=== PATIENT | female | born 1960 | race Caucasian/White ===

== ENCOUNTER 2019-12-20 14:07 | Outpatient (CLI) | payer OTHER | END 2019-12-20 23:59 | disposition home or self-care (01) | LOC: CARD DIAG 14:07 | PROVIDERS: ATTEND Internal Medicine Cardiovascular Disease | DX: R06.02 Shortness of breath (principal); R53.83 Other fatigue | CPT/HCPCS: 93306 ==

== ENCOUNTER 2020-01-31 07:12 | Outpatient (CLI) | payer OTHER ==
[2020-01-31 08:13] LABS: CLARITY,URINE CLEAR (Clear); COLOR,URINE YELLOW (Yellow); GLUCOSE, URINE NEGATIVE (Neg); KETONES,URINE NEGATIVE (Neg); LEUKOCYTE ESTERASE ,URINE NEGATIVE (Neg); NITRITES, URINE NEGATIVE (Neg); OCCULT BLOOD,URINE NEGATIVE (Neg); PROTEIN,URINE NEGATIVE (Neg); UROBILINOGEN,URINE 0.2 E.U/dL (0.2-1.0)
[2020-01-31 08:16] LABS: UA COLLECTION TYPE CLN CATCH MIDSTREAM
[2020-01-31 08:17] LABS: BASOPHILS % (AUTO) 0.6 % (0-1); EOSINOPHILS # (AUTO) 0.2 X10'3 (0-0.9); EOSINOPHILS % (AUTO) 3.7 % (0-6); HEMOGLOBIN 13.5 g/dl (12.0-16.0); LYMPHOCYTES # (AUTO) 1.8 X10'3 (1.1-4.8); LYMPHOCYTES % (AUTO) 28.1 % (21-51); MEAN CORPUSCULAR HEMOGLOBIN 29.3 PG (27.0-31.0); MEAN CORPUSCULAR HGB CONC 32.9 g/dL (33.0-36.5); MEAN CORPUSCULAR VOLUME 89.1 FL (78-98); MEAN PLATELET VOLUME 10.6 FL (7.4-10.4); MONOCYTES # (AUTO) 0.5 X10'3 (0-0.9); MONOCYTES % (AUTO) 7.6 % (2-12); NEUTROPHILS # (AUTO) 3.9 X10'3 (1.8-7.7); PLATELET COUNT 207 X10'3 (140-440); RED CELL DISTRIBUTION WIDTH 13.6 % (11.5-14.5); WHITE BLOOD COUNT 6.6 X10'3 (4.5-11.0)
[2020-01-31 08:29] LABS: OCCULT BLOOD STOOL NEGATIVE (Neg)
[2020-01-31 08:31] LABS: ALANINE AMINOTRANSFERASE 31 U/L (12-78); ALBUMIN 4.1 G/DL (3.4-5.0); ALKALINE PHOSPHATASE 112 IU/L (46-116); ANION GAP 4 (8-16); ASPARTATE AMINO TRANSFERASE 25 U/L (10-37); BILIRUBIN,TOTAL 0.4 MG/DL (0.1-1.0); BLOOD UREA NITROGEN 19 MG/DL (7-18); BUN/CREATININE RATIO 20.7 (6.6-38.0); CALCIUM 8.9 MG/DL (8.5-10.1); CHLORIDE 107 MMOL/L (99-107); CHOLESTEROL 193 MG/DL (0-200); CREATININE 0.92 MG/DL (0.40-0.90); GLUCOSE 94 MG/DL (70-104); HDL CHOLESTEROL 65 MG/DL (35-60); LDL CHOLESTEROL 116 MG/DL (50-100); POTASSIUM 3.6 MMOL/L (3.5-5.1); SODIUM 142 MMOL/L (135-145); TOTAL CARBON DIOXIDE 30.9 MMOL/L (24-32); TOTAL PROTEIN 8.2 G/DL (6.4-8.2); TRIGLYCERIDES 58 MG/DL (20-135); eGFR 63 ML/MIN
[2020-01-31 09:30] LABS: LARGE PLATELETS FEW; PLATELET ESTIMATE NORMAL
== END 2020-01-31 23:59 | disposition home or self-care (01) ==
LOC: LAB 07:12
DX: Z12.11 Encounter for screening for malignant neoplasm of colon (principal); D64.9 Anemia, unspecified; M81.0 Age-related osteoporosis without current pathological fracture; I25.10 Atherosclerotic heart disease of native coronary artery without angina pectoris; E03.9 Hypothyroidism, unspecified; E55.9 Vitamin D deficiency, unspecified
CPT/HCPCS: 36415; 80053; 80061; 81003; 82272; 82306; 84443; 85025

== ENCOUNTER 2020-02-28 07:15 | Inpatient (IN) | payer OTHER ==
[~2020-02-28] VITALS: Ht 160 cm; Wt 65.9 kg
[2020-02-28 08:20] LABS: BASOPHILS # (AUTO) 0.1 X10'3 (0-0.2); BASOPHILS % (AUTO) 1.4 % (0-1); EOSINOPHILS # (AUTO) 0.2 X10'3 (0-0.9); HEMATOCRIT 39.5 % (35.0-45.0); LYMPHOCYTES # (AUTO) 2.5 X10'3 (1.1-4.8); LYMPHOCYTES % (AUTO) 37.9 % (21-51); MEAN CORPUSCULAR HEMOGLOBIN 29.9 PG (27.0-31.0); MEAN CORPUSCULAR HGB CONC 32.9 g/dL (33.0-36.5); MEAN CORPUSCULAR VOLUME 90.9 FL (78-98); MEAN PLATELET VOLUME 10.2 FL (7.4-10.4); MONOCYTES # (AUTO) 0.6 X10'3 (0-0.9); NEUTROPHILS # (AUTO) 3.2 X10'3 (1.8-7.7); NEUTROPHILS % (AUTO) 48.7 % (42-75); PLATELET COUNT 202 X10'3 (140-440); RED BLOOD COUNT 4.35 X10'6 (4.20-5.60); RED CELL DISTRIBUTION WIDTH 14.3 % (11.5-14.5); WHITE BLOOD COUNT 6.5 X10'3 (4.5-11.0)
--- NOTE | 2020-02-28 08:25 | NUR ---
Discussed pt's c/o CP with NEGRA Erwin; new order for repeat EKG and Ativan 0.25mg IV received as pt's HR too low for Clonidine.
[2020-02-28] MEDS ORDERED: LORazepam 2 mg/ml vial IV ONE (08:40)
[2020-02-28 08:44] LABS: ALBUMIN 3.7 G/DL (3.4-5.0); ALBUMIN/GLOBULIN RATIO 0.9 (1.1-1.5); ALKALINE PHOSPHATASE 100 IU/L (46-116); ANION GAP 7 (8-16); ASPARTATE AMINO TRANSFERASE 21 U/L (10-37); BILIRUBIN,TOTAL 0.2 MG/DL (0.1-1.0); BLOOD UREA NITROGEN 19 MG/DL (7-18); BUN/CREATININE RATIO 17.6 (6.6-38.0); CALCIUM 8.9 MG/DL (8.5-10.1); CHLORIDE 107 MMOL/L (99-107); CREATININE 1.08 MG/DL (0.40-0.90); GLUCOSE 88 MG/DL (70-104); POTASSIUM 3.8 MMOL/L (3.5-5.1); SODIUM 140 MMOL/L (135-145); TOTAL CARBON DIOXIDE 25.7 MMOL/L (24-32); TOTAL PROTEIN 7.6 G/DL (6.4-8.2); eGFR 52 ML/MIN
[2020-02-28 08:55] LABS: ALANINE AMINOTRANSFERASE 21 U/L (12-78)
[2020-02-28] MEDS ORDERED: nitroGLYCERIN 0.4mg SUBLingual tab SL PRN ×2 (09:10→13:35)
[2020-02-28] MEDS ORDERED: TICA90TA PO (11:20)
[2020-02-28] MEDS ORDERED: acetaminophen 325mg tablet PO PRN ×2 (11:55)
[2020-02-28] MEDS ORDERED: HYDROcodone/acetaminophen 5mg/325mg tablet PO PRN (11:55)
[2020-02-28] MEDS ORDERED: magnesium 2GM in 50ml NS 50 ML IV PRN (11:55)
[2020-02-28] MEDS ORDERED: magnesium hydroxide 30ml (MOM) UD suspension PO PRN (11:55)
[2020-02-28] MEDS ORDERED: magnesium 4gm in 100ml NS 100 ML IV PRN (11:55)
[2020-02-28] MEDS ORDERED: potassium Cl 20 mEq SR tablet PO PRN ×2 (11:55)
[2020-02-28] MEDS ORDERED: potassium CL 10mEq/100ml bag 100 ML IV PRN ×2 (11:55)
[2020-02-28] MEDS ORDERED: mag hydrox/Alum hydrox/simeth 30ml oral suspension PO PRN (11:55)
[2020-02-28] MEDS ORDERED: magnesium Cl slow-release 64mg tablet PO PRN (11:55)
[2020-02-28] MEDS ORDERED: bisacodyl 10mg suppository rectal RC PRN (11:55)
[2020-02-28] MEDS ORDERED: acetaminophen 650mg rectal suppository RC PRN (11:55)
[2020-02-28] MEDS ORDERED: morphine 2 MG/ML inj. syringe IV PRN ×2 (11:55)
[2020-02-28] MEDS ORDERED: HYDROcodone/acetaminophen 10/325mg tab PO PRN (11:55)
[2020-02-28] MEDS ORDERED: diphenhydrAMINE 25mg capsule PO PRN (11:55)
[2020-02-28 12:19] LABS: HEMOGLOBIN A1C 5.5 % (4.5-6.2)
[2020-02-28] MEDS ORDERED: OREG1500 PO (12:24)
[2020-02-28] MEDS ORDERED: ASCO-100 PO (12:24)
[2020-02-28] MEDS ORDERED: VITA40TA PO (12:24)
[2020-02-28] MEDS ORDERED: CALC600T22 PO (12:24)
[2020-02-28] MEDS ORDERED: RIBO100T3 PO (12:24)
[2020-02-28] MEDS ORDERED: CHOL100025 PO (12:24)
[2020-02-28] MEDS ORDERED: ASPI-611 PO (12:24)
[2020-02-28 12:27] LABS: CLARITY,URINE CLEAR (Clear); COLOR,URINE YELLOW (Yellow); GLUCOSE, URINE NEGATIVE (Neg); KETONES,URINE NEGATIVE (Neg); LEUKOCYTE ESTERASE ,URINE NEGATIVE (Neg); NITRITES, URINE NEGATIVE (Neg); OCCULT BLOOD,URINE NEGATIVE (Neg); PROTEIN,URINE NEGATIVE (Neg); UROBILINOGEN,URINE 0.2 E.U/dL (0.2-1.0)
[2020-02-28] MEDS: normal saline 1000ml 1,000 ML IV SCH (12:27)
[2020-02-28 12:32] LABS: UA COLLECTION TYPE VOIDED
--- NOTE | 2020-02-28 13:03 | NUR ---
report called to Norma on pcu pt going to [phone]
[2020-02-28 13:15] VITALS: BP 108/34
--- NOTE | 2020-02-28 13:15 | NUR ---
Patient arrived on unit, able to transfer self to bed, VSS, no acute distress, will continue to monitor.
[2020-02-28] MEDS ORDERED: regadenoson 0.4mg/5ml syringe IV ONE (13:35)
[2020-02-28] MEDS ORDERED: metoprolol tartrate 1mg/ml inj IV PRN (13:35)
[2020-02-28] MEDS ORDERED: aminophylline 250mg/10ml inj. IV PRN (13:35)
--- NOTE | 2020-02-28 14:00 | NUR ---
Patient reported substernal chest pain 5/10, states it feels similar to previous MA, 12-lead EKG obtained, comparable to previous, Dr. Antonia molina. Nitro not given as patient's BP was 108/38. At end of EKG patient stated that chest pain had subsided and she wanted to take a nap.
[2020-02-28] MEDS ORDERED: regadenoson 0.4mg/5ml syringe IV PRN (15:30)
[2020-02-28 18:00] VITALS: BP 118/46
--- NOTE | 2020-02-28 18:25 | NUR ---
Problems reprioritized. Patient report given, questions answered & plan of care reviewed with NELDA Soriano.
--- NOTE | 2020-02-28 18:30 | NUR ---
Patient in room PCU 3021. I have received report from Gia Lozano RN and had the opportunity to ask questions and assume patient care.
[2020-02-28] MEDS: heparin, porcine 5000 units/ml vial SQ SCH (19:24)
[2020-02-28] MEDS: K and/or MAG REPLACEMENT MC SCH (20:00)
[2020-02-28 22:00] VITALS: BP 105/38
[2020-02-29] VITALS (12 sets, daily range): BP systolic 97–121; BP diastolic 31–60
[2020-02-29] MEDS: normal saline 1000ml 1,000 ML IV SCH ×2 (02:29→15:21)
--- NOTE | 2020-02-29 03:48 | NUR ---
NOTIFIED PAGER ID: [phone] MESSAGE: [id number], berry Holcomb pt HR has been trending lower with the lowest of 39 a few minutes ago. Demond RN [id number]
[2020-02-29 06:09] LABS: BASOPHILS % (AUTO) 0.9 % (0-1); EOSINOPHILS # (AUTO) 0.2 X10'3 (0-0.9); EOSINOPHILS % (AUTO) 3.7 % (0-6); HEMOGLOBIN 12.7 g/dl (12.0-16.0); LYMPHOCYTES # (AUTO) 2.4 X10'3 (1.1-4.8); LYMPHOCYTES % (AUTO) 45.6 % (21-51); MEAN CORPUSCULAR HEMOGLOBIN 29.9 PG (27.0-31.0); MEAN CORPUSCULAR HGB CONC 32.6 g/dL (33.0-36.5); MEAN PLATELET VOLUME 10.5 FL (7.4-10.4); MONOCYTES # (AUTO) 0.5 X10'3 (0-0.9); NEUTROPHILS # (AUTO) 2.2 X10'3 (1.8-7.7); NEUTROPHILS % (AUTO) 40.8 % (42-75); PLATELET COUNT 197 X10'3 (140-440); RED BLOOD COUNT 4.24 X10'6 (4.20-5.60); RED CELL DISTRIBUTION WIDTH 14.1 % (11.5-14.5); WHITE BLOOD COUNT 5.3 X10'3 (4.5-11.0)
--- NOTE | 2020-02-29 06:27 | NUR ---
Patient in room PCU 3021. I have received report from Demond RN and had the opportunity to ask questions and assume patient care.
--- NOTE | 2020-02-29 06:34 | NUR ---
Problems reprioritized. Patient report given, questions answered & plan of care reviewed with Juventino LUTZ.
[2020-02-29 06:40] LABS: ALANINE AMINOTRANSFERASE 19 U/L (12-78); ALBUMIN/GLOBULIN RATIO 0.9 (1.1-1.5); ALKALINE PHOSPHATASE 88 IU/L (46-116); ASPARTATE AMINO TRANSFERASE 16 U/L (10-37); BILIRUBIN,TOTAL 0.4 MG/DL (0.1-1.0); BLOOD UREA NITROGEN 16 MG/DL (7-18); BUN/CREATININE RATIO 16.7 (6.6-38.0); CALCIUM 8.6 MG/DL (8.5-10.1); CHLORIDE 112 MMOL/L (99-107); CHOL/HDL RATIO 3.3 (0.00-4.99); CHOLESTEROL 172 MG/DL (0-200); CREATININE 0.96 MG/DL (0.40-0.90); GLUCOSE 86 MG/DL (70-104); HDL CHOLESTEROL 52 MG/DL (35-60); LDL CHOLESTEROL 110 MG/DL (50-100); MAGNESIUM 2.1 MG/DL (1.5-2.4); PHOSPHORUS 3.6 MG/DL (2.3-4.5); POTASSIUM 4.1 MMOL/L (3.5-5.1); TOTAL PROTEIN 6.5 G/DL (6.4-8.2); TRIGLYCERIDES 94 MG/DL (20-135); eGFR 60 ML/MIN
[2020-02-29 06:51] LABS: ANION GAP 4 (8-16); SODIUM 143 MMOL/L (135-145)
[2020-02-29] MEDS: heparin, porcine 5000 units/ml vial SQ SCH (07:13)
[2020-02-29 07:33] LABS: LARGE PLATELETS FEW; PLATELET ESTIMATE NORMAL
[2020-02-29] MEDS: K and/or MAG REPLACEMENT MC SCH ×2 (08:00→20:00)
[2020-02-29] MEDS: ondansetron/PF 4mg/2ml inj IV PRN ×2 (09:19→20:13)
[2020-02-29] MEDS ORDERED: vancomycin 1,000mg inj ONE (12:47)
[2020-02-29] MEDS ORDERED: LIDOcaine 1% W/epiNEPHrine 1:100,000 20ml vial ONE ×2 (12:47→13:30)
[2020-02-29] MEDS ORDERED: ceFAZolin 1000mg inj ONE (12:47)
[2020-02-29] MEDS ORDERED: midazolam 2 mg/2 ml injection ONE ×2 (12:48→13:37)
[2020-02-29] MEDS ORDERED: fentaNYL/PF 50MCG/1 ML 2ML syringe ONE (12:48)
[2020-02-29] MEDS: VITAMIN K2 PO SCH (13:15)
[2020-02-29] MEDS ORDERED: ondansetron/PF 4mg/2ml inj ONE (13:19)
[2020-02-29] MEDS ORDERED: ticagrelor 90mg tablet PO ONE ×2 (15:00→23:59)
[2020-02-29] MEDS ORDERED: HYDROcodone/acetaminophen 5mg/325mg tablet PO PRN (15:10)
[2020-02-29] MEDS ORDERED: CEPH-572 PO (15:25)
[2020-02-29] MEDS ORDERED: vancomycin/NS 1 GM ADD-VANTAGE 250 ML IV SCH (16:00)
--- NOTE | 2020-02-29 18:10 | NUR ---
Problems reprioritized. Patient report given, questions answered & plan of care reviewed with Demond RN.
--- NOTE | 2020-02-29 18:30 | NUR ---
Patient in room PCU 3021. I have received report from Juventino LUTZ and had the opportunity to ask questions and assume patient care.
[2020-02-29] MEDS ORDERED: ticagrelor 90mg tablet PO SCH ×2 (20:00)
[2020-02-29] MEDS: ascorbic acid 500mg tablet PO SCH (20:02)
--- NOTE | 2020-03-01 00:13 | NUR ---
NOTIFIED PAGER ID: [phone] MESSAGE: Corina Holcomb, [phone]- pt is due for 0000 brilanta but states she will not be able to hold it down. Zofran (Q6) was effective for short time last given 3hrs ago. may I get an order for Compazine or other meds? MARYELLEN RN [id number]
[2020-03-01] MEDS ORDERED: ondansetron/PF 4mg/2ml inj IV ONE (00:15)
[2020-03-01 02:00] VITALS: BP 116/47
[2020-03-01 06:11] LABS: BASOPHILS % (AUTO) 0.5 % (0-1); EOSINOPHILS % (AUTO) 0.2 % (0-6); HEMATOCRIT 37.9 % (35.0-45.0); HEMOGLOBIN 12.6 g/dl (12.0-16.0); LYMPHOCYTES # (AUTO) 1.6 X10'3 (1.1-4.8); LYMPHOCYTES % (AUTO) 16.9 % (21-51); MEAN CORPUSCULAR HEMOGLOBIN 30.2 PG (27.0-31.0); MEAN CORPUSCULAR HGB CONC 33.2 g/dL (33.0-36.5); MEAN PLATELET VOLUME 10.5 FL (7.4-10.4); MONOCYTES # (AUTO) 0.5 X10'3 (0-0.9); MONOCYTES % (AUTO) 5.9 % (2-12); NEUTROPHILS % (AUTO) 76.5 % (42-75); PLATELET COUNT 199 X10'3 (140-440); RED BLOOD COUNT 4.17 X10'6 (4.20-5.60); WHITE BLOOD COUNT 9.2 X10'3 (4.5-11.0)
[2020-03-01 06:27] LABS: ALANINE AMINOTRANSFERASE 17 U/L (12-78); ALBUMIN 3.2 G/DL (3.4-5.0); ALBUMIN/GLOBULIN RATIO 0.8 (1.1-1.5); ALKALINE PHOSPHATASE 89 IU/L (46-116); ANION GAP 8 (8-16); ASPARTATE AMINO TRANSFERASE 26 U/L (10-37); BILIRUBIN,TOTAL 0.4 MG/DL (0.1-1.0); BLOOD UREA NITROGEN 16 MG/DL (7-18); CALCIUM 8.6 MG/DL (8.5-10.1); CHLORIDE 106 MMOL/L (99-107); CREATININE 1.07 MG/DL (0.40-0.90); GLUCOSE 98 MG/DL (70-104); MAGNESIUM 2.1 MG/DL (1.5-2.4); PHOSPHORUS 3.3 MG/DL (2.3-4.5); POTASSIUM 4.5 MMOL/L (3.5-5.1); SODIUM 141 MMOL/L (135-145); TOTAL CARBON DIOXIDE 27.5 MMOL/L (24-32); eGFR 53 ML/MIN
--- NOTE | 2020-03-01 06:28 | NUR ---
Problems reprioritized. Patient report given, questions answered & plan of care reviewed with Ailin LUTZ.
[2020-03-01] MEDS: ondansetron/PF 4mg/2ml inj IV PRN (06:35)
[2020-03-01 06:55] LABS: LARGE PLATELETS FEW; PLATELET ESTIMATE NORMAL
[2020-03-01 07:00] VITALS: BP 113/54
--- NOTE | 2020-03-01 07:19 | NUR ---
Patient in room PCU 3021. I have received report from Demond RN and had the opportunity to ask questions and assume patient care.
[2020-03-01] MEDS ORDERED: OREGANO OIL 1500 MG PO SCH (08:00)
[2020-03-01] MEDS ORDERED: RIBOFLAVIN PO SCH (08:00)
[2020-03-01] MEDS: K and/or MAG REPLACEMENT MC SCH ×2 (08:00→20:00)
[2020-03-01] MEDS: VITAMIN K2 PO SCH (08:00)
[2020-03-01] MEDS: aspirin 81mg tab.chew PO SCH (08:24)
[2020-03-01] MEDS: calcium carbonate 500mg tablet PO SCH (08:24)
[2020-03-01] MEDS: ticagrelor 90mg tablet PO SCH ×2 (08:25→21:10)
[2020-03-01] MEDS: vitamin D (cholecalciferol) 1,000 unit tablet PO SCH (08:25)
[2020-03-01] MEDS: ascorbic acid 500mg tablet PO SCH ×2 (08:25→21:10)
--- NOTE | 2020-03-01 09:46 | NUR ---
Upon assessment this AM the patient has several minor complaints. Pt. c/o nausea, stated that Roscoe does not work well with her and is requesting Perocet and toradol. PRN Zofran given, initial assessment the patient stated it was ineffective but after administration of broth, she reports nausea is relieved. Patient c/o numbness to L arm. Loosened pressure dressing and repositioned her and at that time she reports it feeling better. Pt. has worries about her CR today and the fact that she had Vanco last night and no mucomyst after her procedure. Explained to her that nursing would address her concerns with MD; She prefers nursing to wait for him to do his rounding. Pt. concerned that her temperature is 98.6, stated her normal temp is 97.0, but she did not want the covers removed. Will continue to monitor and address her concerns. 1:1 consoling provided to ensure she is being heard and all her concerns are being answered. Pt. requesting nursing to take pictures of her labs from her cell phone, nursing declined and educated that nursing could have medical records print records, she verbalized understanding. Pharmacy does not carry her home med of K2 and she would not have it while here unless someone brings it in, she stated she will be discharged today and therefore will not have anyone bring it in. Pt. is resting comfortably at this time.
[2020-03-01 11:00] VITALS: BP 96/41
--- NOTE | 2020-03-01 11:08 | NUR ---
All patient concerns reviewed with Dr. Antonia MD stated he plans to discharge her today if Dr. Beck is in agreement. Called Dr. Beck, pending return call.
[2020-03-01] MEDS ORDERED: OXYC-145 PO (12:18)
--- NOTE | 2020-03-01 12:28 | NUR ---
PAGER ID: [phone] MESSAGE: [phone] Corina Holcomb, Patient cleared to discharge by Dr. Alejo, you can put the discharge in when you are available. Also she would like a work release, I have the form. Ailin LUTZ [id number]
--- NOTE | 2020-03-01 13:07 | NUR ---
When questioning patient about her ride upon discharge, she stated she was driving home to [place]. After discussion with MD and case management it was determined that her driving herself is unsafe. Patient stated she would try to set up an air B&B but does not feel comfortable leaving her car here. enterprise manager stated her car would be safe in the parking lot. Pt. stated she wants to work out arrangements to stay in air B&B and staff can arrange a cab. At this time, her discharge is on hold until we can ensure safety for this patient.
--- NOTE | 2020-03-01 13:47 | NUR ---
Patients discharge is on hold until the AM so discharge can be safely arranged.
[2020-03-01] MEDS: oxyCODONE/APAP 5-325mg tablet PO PRN ×2 (14:03→23:41)
[2020-03-01] MEDS: normal saline 1000ml 1,000 ML IV SCH (14:03)
--- NOTE | 2020-03-01 14:20 | NUR ---
3021 Corina Holcomb, would you like me to cancel the order for the discharge on 3020? Ailin LUTZ ext [phone]
--- NOTE | 2020-03-01 14:32 | NUR ---
Patient in room PCU 3021. I have received report from Ailin LUTZ and had the opportunity to ask questions and assume patient care. I agree with the assessment of Ailin LUTZ who I received report from. Will continue to monitor.
--- NOTE | 2020-03-01 14:46 | NUR ---
Problems reprioritized. Patient report given, questions answered & plan of care reviewed with Nicky LUTZ.
[2020-03-01 15:00] VITALS: BP 96/41
--- NOTE | 2020-03-01 15:49 | NUR ---
Patient's temp has increased slightly to 99.1, patient was instructed to removed some of the blankets, will re-check in a half hour.
[2020-03-01] MEDS: cephalexin 500mg capsule PO SCH ×2 (15:57→23:01)
--- NOTE | 2020-03-01 18:19 | NUR ---
Problems reprioritized. Patient report given, questions answered & plan of care reviewed with Sahil LUTZ. Patient stable at transfer of care.
--- NOTE | 2020-03-01 18:22 | NUR ---
Patient in room PCU 3021. I have received report from Nicky LUTZ and had the opportunity to ask questions and assume patient care.
[2020-03-01 19:46] VITALS: BP 109/38
[2020-03-01 23:00] VITALS: BP 119/56
[2020-03-02 04:43] VITALS: BP 93/30
[2020-03-02 04:50] VITALS: BP 102/57
[2020-03-02 06:10] LABS: BASOPHILS % (AUTO) 0.5 % (0-1); EOSINOPHILS # (AUTO) 0.1 X10'3 (0-0.9); EOSINOPHILS % (AUTO) 1.4 % (0-6); HEMATOCRIT 36.5 % (35.0-45.0); LYMPHOCYTES # (AUTO) 2.1 X10'3 (1.1-4.8); LYMPHOCYTES % (AUTO) 27.3 % (21-51); MEAN CORPUSCULAR HEMOGLOBIN 29.9 PG (27.0-31.0); MEAN CORPUSCULAR HGB CONC 32.9 g/dL (33.0-36.5); MEAN CORPUSCULAR VOLUME 90.8 FL (78-98); MEAN PLATELET VOLUME 10.3 FL (7.4-10.4); MONOCYTES # (AUTO) 0.7 X10'3 (0-0.9); MONOCYTES % (AUTO) 8.9 % (2-12); NEUTROPHILS # (AUTO) 4.7 X10'3 (1.8-7.7); NEUTROPHILS % (AUTO) 61.9 % (42-75); PLATELET COUNT 182 X10'3 (140-440); RED BLOOD COUNT 4.02 X10'6 (4.20-5.60); RED CELL DISTRIBUTION WIDTH 14.1 % (11.5-14.5); WHITE BLOOD COUNT 7.6 X10'3 (4.5-11.0)
--- NOTE | 2020-03-02 06:21 | NUR ---
Problems reprioritized. Patient report given, questions answered & plan of care reviewed with Lindy LUTZ.
[2020-03-02 06:26] LABS: ALANINE AMINOTRANSFERASE 16 U/L (12-78); ALBUMIN 2.9 G/DL (3.4-5.0); ALBUMIN/GLOBULIN RATIO 0.9 (1.1-1.5); ALKALINE PHOSPHATASE 80 IU/L (46-116); ANION GAP 8 (8-16); ASPARTATE AMINO TRANSFERASE 27 U/L (10-37); BILIRUBIN,TOTAL 0.5 MG/DL (0.1-1.0); BLOOD UREA NITROGEN 10 MG/DL (7-18); BUN/CREATININE RATIO 11.6 (6.6-38.0); CALCIUM 8.1 MG/DL (8.5-10.1); CHLORIDE 110 MMOL/L (99-107); CREATININE 0.86 MG/DL (0.40-0.90); GLUCOSE 88 MG/DL (70-104); MAGNESIUM 1.9 MG/DL (1.5-2.4); PHOSPHORUS 3.1 MG/DL (2.3-4.5); POTASSIUM 3.6 MMOL/L (3.5-5.1); SODIUM 142 MMOL/L (135-145); TOTAL CARBON DIOXIDE 24.3 MMOL/L (24-32); TOTAL PROTEIN 6.3 G/DL (6.4-8.2); eGFR 68 ML/MIN
--- NOTE | 2020-03-02 06:56 | NUR ---
Patient in room PCU 3021. I have received report from Jose and had the opportunity to ask questions and assume patient care.
[2020-03-02 07:00] VITALS: BP 103/46
[2020-03-02] MEDS: calcium carbonate 500mg tablet PO SCH (07:11)
[2020-03-02] MEDS: ticagrelor 90mg tablet PO SCH (07:11)
[2020-03-02] MEDS: vitamin D (cholecalciferol) 1,000 unit tablet PO SCH (07:11)
[2020-03-02] MEDS: aspirin 81mg tab.chew PO SCH (07:11)
[2020-03-02] MEDS: ascorbic acid 500mg tablet PO SCH (07:11)
[2020-03-02] MEDS: cephalexin 500mg capsule PO SCH (07:11)
[2020-03-02] MEDS: normal saline 1000ml 1,000 ML IV SCH (07:17)
[2020-03-02] MEDS: K and/or MAG REPLACEMENT MC SCH (08:00)
[2020-03-02] MEDS: VITAMIN K2 PO SCH (08:00)
[2020-03-02] MEDS ORDERED: ROSU20TA2 PO (10:00)
--- NOTE | 2020-03-02 10:25 | NUR ---
patient stated she has arranged an Air B&B and is ready for discharge. Pt. cleared to discharge by Dr. Mackenzie and Dr. Alejo. Pt. will be transported by a CAB.
--- NOTE | 2020-03-02 11:16 | NUR ---
All discharge instructions reviewed with patient. New medications sent to [facility]. All discharge instructions from Dr. Alejo reviewed with patient and she verbalized understanding. Pt. denies dyspnea, CP, pain or nausea. Tele removed and PIV removed. Patient has a scheduled F/U appointment with her primary and she is to call and arrange an appointment with Dr. Alejo. Pt. was escorted out to [facility] for transportation to get her prescriptions and take her to her air B&B. Pt. left the hospital in stable condition.
== END 2020-03-02 11:10 | disposition home or self-care (01) | DRG 244 ==
LOC: ER 07:16 → ED HOLD 11:54 → PCU 3S 13:19
PROVIDERS: ADMIT Family Medicine; ATTEND Family Medicine
PROC: 0JH606Z Insertion of Pacemaker, Dual Chamber into Chest Subcutaneous Tissue and Fascia, Open Approach (ICD-10-PCS; principal; 2020-02-28)
PROC: 02HK3JZ Insertion of Pacemaker Lead into Right Ventricle, Percutaneous Approach (ICD-10-PCS; 2020-02-28)
PROC: 02H63JZ Insertion of Pacemaker Lead into Right Atrium, Percutaneous Approach (ICD-10-PCS; 2020-02-28)
DX: I49.5 Sick sinus syndrome (principal); E78.00 Pure hypercholesterolemia, unspecified; E78.5 Hyperlipidemia, unspecified; F41.9 Anxiety disorder, unspecified; I10 Essential (primary) hypertension; I25.10 Atherosclerotic heart disease of native coronary artery without angina pectoris; I25.2 Old myocardial infarction; Z79.82 Long term (current) use of aspirin; Z79.899 Other long term (current) drug therapy; Z82.49 Family history of ischemic heart disease and other diseases of the circulatory system; Z95.5 Presence of coronary angioplasty implant and graft; Z88.2 Allergy status to sulfonamides; Z88.8 Allergy status to other drugs, medicaments and biological substances
CPT/HCPCS: 36415; 80053; 80061; 81003; 83036; 83735; 84100; 84443; 84484; 85025; 87081; 93005; 93306; 99285; G0378; J0690; J1644; J2250; J2270; J2405; J3010; J3370; J7030

== ENCOUNTER 2020-04-26 07:16 | Emergency (ER) | payer OTHER ==
[~2020-04-26] VITALS: Ht 160 cm; Wt 62.7 kg
[~2020-04-26 07:16] MED LIST: ASCO-100 PO; ASPI-611 PO; CALC600T22 PO; CHOL100025 PO; OREG1500 PO; OXYC-145 PO; RIBO100T3 PO; ROSU20TA2 PO; TICA90TA PO; VITA40TA PO
[2020-04-26 07:24] VITALS: BP 152/71
[2020-04-26] MEDS ORDERED: proparacaine 0.5% ophthalmic drops 15ml RIGHTEYE ONE (07:40)
[2020-04-26] MEDS ORDERED: ERYT1OIN6 RIGHTEYE (08:19)
== END 2020-04-26 08:50 | disposition home or self-care (01) ==
LOC: ER 07:17
DX: H00.012 Hordeolum externum right lower eyelid (principal); E78.00 Pure hypercholesterolemia, unspecified; I10 Essential (primary) hypertension; I25.2 Old myocardial infarction; Z98.61 Coronary angioplasty status; Z98.890 Other specified postprocedural states; Z88.2 Allergy status to sulfonamides; Z79.82 Long term (current) use of aspirin; Z79.899 Other long term (current) drug therapy; Z79.2 Long term (current) use of antibiotics
CPT/HCPCS: 99283

== ENCOUNTER 2020-07-12 14:15 | Emergency (ER) | payer OTHER ==
[~2020-07-12] VITALS: Ht 160 cm; Wt 65.5 kg
[2020-07-12] MEDS ORDERED: morphine 4 MG/ML inj SYRINge IV PRN (15:55)
[2020-07-12] MEDS ORDERED: diazepam inj 5 MG/ML inj. IV ONE (15:55)
--- NOTE | 2020-07-12 16:30 | NUR ---
PACEMAKER REP CONTACTED ABOUT TIME OF MRI, AND HE WILL BE COMING
--- NOTE | 2020-07-12 17:10 | NUR ---
Miley acevedo in [facility] - 07/12/20 at 1711 by CELESTINE PT. OFF THE FLOOR TO MRI
--- NOTE | 2020-07-12 17:12 | NUR ---
PT. OFF FLOOR AT MRI
--- NOTE | 2020-07-12 17:57 | NUR ---
PT BACK FROM MRI IN STABLE CONDITION VIA WHEELCHAIR.
--- NOTE | 2020-07-12 17:59 | NUR ---
Miley acevedo in [facility] - 07/12/20 at 1759 by CAYLA PT. BACK FROM MRI
[2020-07-12] MEDS ORDERED: HYDR-4353 PO (19:09)
[2020-07-12] MEDS ORDERED: VAL5T PO ×2 (19:09→19:17)
[2020-07-12] MEDS ORDERED: PER5325T PO (19:17)
[2020-07-12 19:32] VITALS: BP 135/66
== END 2020-07-12 19:33 | disposition home or self-care (01) ==
LOC: ER 14:16
DX: M54.5 Low back pain (principal); M62.838 Other muscle spasm; E78.00 Pure hypercholesterolemia, unspecified; I10 Essential (primary) hypertension; I25.2 Old myocardial infarction; Z98.61 Coronary angioplasty status; Z95.0 Presence of cardiac pacemaker; Z88.2 Allergy status to sulfonamides; Z79.82 Long term (current) use of aspirin; Z79.01 Long term (current) use of anticoagulants; Z79.899 Other long term (current) drug therapy
CPT/HCPCS: 72148; 96374; 96375; 99284; J2270; J3360

== ENCOUNTER 2020-10-19 06:43 | Inpatient (IN) | payer BC ==
[~2020-10-19] VITALS: Ht 162.6 cm; Wt 70.0 kg
[2020-10-19] VITALS (10 sets, daily range): BP systolic 110–141; BP diastolic 53–63
[2020-10-19 07:30] LABS: BASOPHILS # (AUTO) 0.1 X10'3 (0-0.2); BASOPHILS % (AUTO) 1.5 % (0-1); EOSINOPHILS # (AUTO) 0.2 X10'3 (0-0.9); EOSINOPHILS % (AUTO) 3.1 % (0-6); HEMATOCRIT 39.1 % (35.0-45.0); HEMOGLOBIN 12.9 g/dl (12.0-16.0); LYMPHOCYTES # (AUTO) 2.4 X10'3 (1.1-4.8); LYMPHOCYTES % (AUTO) 37.6 % (21-51); MEAN CORPUSCULAR HEMOGLOBIN 29.7 PG (27.0-31.0); MEAN CORPUSCULAR HGB CONC 32.9 g/dL (33.0-36.5); MEAN CORPUSCULAR VOLUME 90.4 FL (78-98); MEAN PLATELET VOLUME 9.5 FL (7.4-10.4); MONOCYTES # (AUTO) 0.7 X10'3 (0-0.9); MONOCYTES % (AUTO) 10.8 % (2-12); PLATELET COUNT 241 X10'3 (140-440); RED BLOOD COUNT 4.32 X10'6 (4.20-5.60); RED CELL DISTRIBUTION WIDTH 13.8 % (11.5-14.5); WHITE BLOOD COUNT 6.4 X10'3 (4.5-11.0)
[2020-10-19] MEDS ORDERED: nitroGLYCERIN 1gm ointment UD TP ONE (07:30)
[2020-10-19] MEDS ORDERED: nitroGLYCERIN 0.4mg SUBLingual tab SL PRN ×2 (07:35→09:20)
[2020-10-19 07:46] LABS: ALANINE AMINOTRANSFERASE 32 U/L (12-78); ALBUMIN 3.8 G/DL (3.4-5.0); ALKALINE PHOSPHATASE 105 IU/L (46-116); ANION GAP 6 (8-16); ASPARTATE AMINO TRANSFERASE 26 U/L (10-37); BILIRUBIN,TOTAL 0.4 MG/DL (0.1-1.0); BLOOD UREA NITROGEN 18 MG/DL (7-18); BUN/CREATININE RATIO 20.7 (6.6-38.0); CHLORIDE 109 MMOL/L (99-107); CREATININE 0.87 MG/DL (0.40-0.90); GLUCOSE 91 MG/DL (70-104); POTASSIUM 3.5 MMOL/L (3.5-5.1); SODIUM 142 MMOL/L (135-145); TOTAL CARBON DIOXIDE 27.4 MMOL/L (24-32); TOTAL PROTEIN 7.6 G/DL (6.4-8.2); eGFR 67 ML/MIN
--- NOTE | 2020-10-19 07:50 | NUR ---
DR SHIELDS MADE AWARE PATIENT REFUSED NITRO OINTMENT (SEE EMAR), AND BP DROPPED FROM 142/69 TO 114/66 AFTER X1 NITRO (SEE EMAR), PATIENT REFUSING ANOTHER DOSE AND NOW HAS HEADACHE 07/06, ORDERS RECEIVED, WILL CONTINUE TO MONITOR.
[2020-10-19] MEDS ORDERED: acetaminophen 325mg tablet PO ONE (07:55)
--- NOTE | 2020-10-19 08:38 | NUR ---
Pt reports overall improvement, still with occasional chest heaviness, 4/10, no radiation, no SOB. MD aware.
[2020-10-19] MEDS ORDERED: CLOP75TA35 PO (08:58)
[2020-10-19] MEDS ORDERED: ATOR40TA72 PO (08:58)
[2020-10-19] MEDS ORDERED: ondansetron/PF 4mg/2ml inj IV PRN (09:20)
[2020-10-19] MEDS ORDERED: magnesium 4gm in 100ml NS 100 ML IV PRN (09:20)
[2020-10-19] MEDS ORDERED: potassium Cl 20 mEq SR tablet PO PRN ×2 (09:20)
[2020-10-19] MEDS ORDERED: regadenoson 0.4mg/5ml syringe IV ONE (09:20)
[2020-10-19] MEDS ORDERED: magnesium 2GM in 50ml NS 50 ML IV PRN (09:20)
[2020-10-19] MEDS ORDERED: aminophylline 250mg/10ml inj. IV PRN (09:20)
[2020-10-19] MEDS ORDERED: acetaminophen 325mg tablet PO PRN (09:20)
[2020-10-19] MEDS ORDERED: potassium CL 10mEq/100ml bag 100 ML IV PRN ×2 (09:20)
[2020-10-19] MEDS ORDERED: HYDROcodone/acetaminophen 5mg/325mg tablet PO PRN (09:20)
[2020-10-19] MEDS ORDERED: morphine 2 MG/ML inj. syringe IV PRN (09:20)
[2020-10-19] MEDS ORDERED: metoprolol tartrate 1mg/ml inj IV PRN (09:20)
[2020-10-19] MEDS ORDERED: magnesium Cl slow-release 64mg tablet PO PRN (09:20)
--- NOTE | 2020-10-19 10:16 | NUR ---
Echo at bedside, pt tolerating well Addendum: 10/19/20 at 1020 by AYLEEN Lab at bedside to draw second troponin
[2020-10-19] MEDS: normal saline 1000ml 1,000 ML IV SCH ×2 (10:58→19:20)
[2020-10-19] MEDS ORDERED: LORA-269 PO (12:52)
--- NOTE | 2020-10-19 12:55 | NUR ---
DR CLINTON AWARE PATIENT IS EXPERIENCING INTERMITTENT CP, WILL FOLLOW UP WITH NM REGARDING STRESS TEST ORDER.
--- NOTE | 2020-10-19 13:08 | NUR ---
Phone call to [facility] at this time for update of patient's status r/t stress test, per tech patient was supposed to have test performed at noon. Addendum: 10/19/20 at 1309 by KAYLIN No answer from department.
--- NOTE | 2020-10-19 13:25 | NUR ---
3rd troponin drawn at this time
--- NOTE | 2020-10-19 13:30 | NUR ---
Patient in room PCU 3028. I have received report from Tsering LUTZ and had the opportunity to ask questions and assume patient care.
--- NOTE | 2020-10-19 13:45 | NUR ---
Problems reprioritized. Patient report given, questions answered & plan of care reviewed with NELDA Mayers.
--- NOTE | 2020-10-19 18:33 | NUR ---
Patient in room PCU 3028. I have received report from Rinaa LUTZ and had the opportunity to ask questions and assume patient care.
--- NOTE | 2020-10-19 19:24 | NUR ---
Problems reprioritized. Patient report given, questions answered & plan of care reviewed with Lennie.
--- NOTE | 2020-10-19 19:25 | NUR ---
Patient in room PCU 3028. I have received report from Mikaela and had the opportunity to ask questions and assume patient care.
[2020-10-19] MEDS ORDERED: K and/or MAG REPLACEMENT MC SCH (20:00)
[2020-10-19] MEDS ORDERED: heparin, porcine 5000 units/ml vial SQ SCH (20:00)
[2020-10-19] MEDS ORDERED: temazepam 15mg capsule PO PRN (21:00)
[2020-10-20 02:00] VITALS: BP 118/55
[2020-10-20 05:19] LABS: BASOPHILS % (AUTO) 0.9 % (0-1); EOSINOPHILS # (AUTO) 0.2 X10'3 (0-0.9); EOSINOPHILS % (AUTO) 3.5 % (0-6); HEMATOCRIT 41.3 % (35.0-45.0); HEMOGLOBIN 13.4 g/dl (12.0-16.0); LYMPHOCYTES # (AUTO) 1.9 X10'3 (1.1-4.8); LYMPHOCYTES % (AUTO) 39.6 % (21-51); MEAN CORPUSCULAR HEMOGLOBIN 29.7 PG (27.0-31.0); MEAN CORPUSCULAR HGB CONC 32.4 g/dL (33.0-36.5); MEAN CORPUSCULAR VOLUME 91.5 FL (78-98); MEAN PLATELET VOLUME 9.7 FL (7.4-10.4); MONOCYTES # (AUTO) 0.5 X10'3 (0-0.9); MONOCYTES % (AUTO) 9.6 % (2-12); NEUTROPHILS # (AUTO) 2.2 X10'3 (1.8-7.7); NEUTROPHILS % (AUTO) 46.4 % (42-75); PLATELET COUNT 225 X10'3 (140-440); RED BLOOD COUNT 4.51 X10'6 (4.20-5.60); RED CELL DISTRIBUTION WIDTH 13.5 % (11.5-14.5); WHITE BLOOD COUNT 4.8 X10'3 (4.5-11.0)
[2020-10-20 05:27] LABS: ALANINE AMINOTRANSFERASE 31 U/L (12-78); ALBUMIN 3.5 G/DL (3.4-5.0); ALBUMIN/GLOBULIN RATIO 0.9 (1.1-1.5); ALKALINE PHOSPHATASE 100 IU/L (46-116); ANION GAP 9 (8-16); ASPARTATE AMINO TRANSFERASE 23 U/L (10-37); BILIRUBIN,TOTAL 0.6 MG/DL (0.1-1.0); BLOOD UREA NITROGEN 15 MG/DL (7-18); CALCIUM 8.9 MG/DL (8.5-10.1); CHLORIDE 111 MMOL/L (99-107); CHOL/HDL RATIO 2.3 (0.00-4.99); CHOLESTEROL 163 MG/DL (0-200); CREATININE 0.88 MG/DL (0.40-0.90); GLUCOSE 85 MG/DL (70-104); HDL CHOLESTEROL 70 MG/DL (35-60); LDL CHOLESTEROL 83 MG/DL (50-100); POTASSIUM 3.9 MMOL/L (3.5-5.1); SODIUM 144 MMOL/L (135-145); TOTAL PROTEIN 7.2 G/DL (6.4-8.2); TRIGLYCERIDES 62 MG/DL (20-135); eGFR 66 ML/MIN
[2020-10-20 06:00] VITALS: BP 133/72
--- NOTE | 2020-10-20 06:38 | NUR ---
Problems reprioritized. Patient report given, questions answered & plan of care reviewed with Riana LUTZ. Patient stable at transfer of care. All current needs met
[2020-10-20 11:00] VITALS: BP 96/38
== END 2020-10-20 14:40 | disposition home or self-care (01) | DRG 880 ==
LOC: ER 06:44 → EEVIPCON 06:44 → ED HOLD 09:20 → PCU 3S 14:26
PROVIDERS: ADMIT Internal Medicine; ATTEND Internal Medicine
PROC: 4A02XM4 Measurement of Cardiac Total Activity, External Approach (ICD-10-PCS; principal; 2020-10-19)
PROC: 3E073KZ Introduction of Other Diagnostic Substance into Coronary Artery, Percutaneous Approach (ICD-10-PCS; 2020-10-19)
DX: F41.9 Anxiety disorder, unspecified (principal); E78.00 Pure hypercholesterolemia, unspecified; E78.5 Hyperlipidemia, unspecified; I10 Essential (primary) hypertension; Z66 Do not resuscitate; I25.10 Atherosclerotic heart disease of native coronary artery without angina pectoris; I25.2 Old myocardial infarction; Z95.0 Presence of cardiac pacemaker
CPT/HCPCS: 36415; 71045; 78452; 80053; 80061; 83735; 83880; 84484; 85025; 87081; 93005; 93017; 93306; 93308; 99285; A9500; G0378; J1644; J2785; J7030